=== PATIENT | male | born 1975 | race Caucasian/White ===

== ENCOUNTER 2017-11-09 22:11 | Emergency (ER) | payer OTHER ==
[~2017-11-09] VITALS: Ht 170.2 cm; Wt 85.1 kg
[~2017-11-09 22:11] MED LIST: ALLO100T PO; LISI-725 PO; NAPR-21 PO
[2017-11-09 22:15] VITALS: Ht 170.2 cm; Wt 85.1 kg
[2017-11-09] MEDS ORDERED: OXYCODONE/ACETAMINOPHEN 5-325 TAB PO STA (22:35)
[2017-11-09] MEDS ORDERED: IBUPROFEN 600 MG TAB PO STA (22:35)
[2017-11-09 23:02] LABS: EOS % 0.7 %; EOS ABS # 0.05 K/uL (0-0.5); HEMATOCRIT 44.1 % (42-52); HEMOGLOBIN 14.9 g/dL (14.0-18.0); IG# 0.01 K/uL (0.00-0.02); LYMPH % 14.7 %; LYMPH ABS # 1.03 K/uL (1.2-3.4); MEAN CELL VOLUME 87.8 fL (80-100); MEAN CORPUSCULAR HEMOGLOBIN 29.7 pg (25-34); MEAN CORPUSCULAR HGB CONC 33.8 g/dl (32-36); MEAN PLATELET VOLUME 9.7 fL (7.4-10.4); MONO % 11.7 %; MONO ABS # 0.82 K/uL (0.11-0.59); NEUT % 72.8 %; NEUT ABS # 5.09 K/uL (1.4-6.5); PLATELET COUNT 273 K/uL (130-400); RED CELL DISTRIBUTION WIDTH CV 13.1 % (11.5-14.5); RED CELL DISTRIBUTION WIDTH SD 41.6 fL (36.4-46.3)
[2017-11-09] MEDS ORDERED: ASPI325T39 PO (23:07)
[2017-11-09] MEDS ORDERED: FLNIN/ NAE (23:07)
[2017-11-09] MEDS ORDERED: LSN40 PO (23:07)
[2017-11-09] MEDS ORDERED: PANT40TA2 PO (23:07)
[2017-11-09 23:23] LABS: POTASSIUM 3.8 mmol/L (3.5-5.1); URIC ACID 5.8 mg/dl (2.6-7.2)
[2017-11-09] MEDS ORDERED: CEFTRIAXONE SOD INJ 1 GM ADDVIAL IV STA (23:41)
[2017-11-09] MEDS ORDERED: SULFAMETHOXAZOLE/TRIMETHOPRIM DS 800/160MG TAB PO ONE (23:45)
[2017-11-09] MEDS ORDERED: PERCOCET HOME PACK PO ONE (23:45)
[2017-11-10] MEDS ORDERED: SULF800T23 PO
[2017-11-10] MEDS ORDERED: CEPH500C PO
[2017-11-10] MEDS ORDERED: CLC6 PO
[2017-11-10] MEDS ORDERED: OXYC-57 PO
[2017-11-10] MEDS ORDERED: CEPHALEXIN MONOHYDRATE 250 MG CAP PO ONE
--- NOTE | 2017-11-10 00:01 | EMERGENCY ROOM VISIT NOTE ---
History First contact with patient: 22:21 Chief Complaint: FOOT PAIN Stated Complaint: R FOOT HURTS BAD History of Present Illness The patient is a 42 year old male who presents to the Emergency Room with complaints of severe pain in the right foot that has been intermittent over the last several weeks. Patient also complains of redness and swelling. He has a history of gout. He has been taking his allopurinol as prescribed. He denies any fever or chills. No known injury. The patient has tried soaking it in Epsom salts with minimal relief. He is not taking any pain medication. Review of Systems 10 system review performed and negative unless noted in HPI or below Past Medical/Surgical History Gout Hernia surgery Social History Smoking Status: Never Smoker Alcohol Use: none Housing Status: lives with family Current/Historical Medications Scheduled Aspirin (Aspirin Ec), 325 MG PO PRN Cephalexin Monohydrate (Keflex), 500 MG PO QID Colchicine (Colcrys), 1 TAB PO BID Fluticasone Propionate (Fluticasone Propionate), 2 SPRAYS WALKER DAILY Lisinopril (Lisinopril), 40 MG PO DAILY Pantoprazole (Pantoprazole Sodium), 40 MG PO DAILY Sulfa/Trimethoprim (Bactrim Ds 800MG/160MG), 1 TAB PO BID Scheduled PRN Allopurinol (Zyloprim), 100 MG PO QAM PRN for GOUT PAIN Oxycodone/Acetaminophen 5MG/325MG (Percocet 5MG/325MG), 1-2 TABS PO Q4 PRN for Pain Physical Exam Vital Signs Date Time Temp Pulse Resp B/P (MAP) Pulse Ox O2 Delivery O2 Flow Rate FiO2 11/10/17 00:09 37.5 95 18 138/100 96 11/10/17 00:00 37.5 95 18 138/100 96 Room Air 11/09/17 22:15 37.7 110 20 95 Room Air Physical Exam VITALS: Vitals are noted on the nurse's note and reviewed by myself. Vital signs stable. GENERAL: 42-year-old male, in moderate discomfort,, in no acute distress, nondiaphoretic, well-developed well-nourished. SKIN: A few superficial cracks noted in the webspaces of the toes on the right foot HEAD: Normocephalic atraumatic. EYES: Conjunctivae without injection, sclerae without icterus. Extraocular movements intact. NECK: Supple without nuchal rigidity. No JVD. MUSCULOSKELETAL: RLE: Diffuse edema and erythema over the right foot. Significant tenderness to palpation over the first and second MTP joint. A few superficial cracks noted in the webspaces as noted above. No significant tenderness over the ankle. Pain with dorsiflexion and plantarflexion. NEURO: Patient was alert and oriented to person place and time. Normal sensation to touch. No focal neurological deficits. Medical Decision & Procedures ER Provider Diagnostic Interpretation: X-rays of the right foot were performed and reviewed by myself No acute fracture or signs of osteomyelitis noted Laboratory Results 11/09/17 22:45 Red Blood Count 5.02, Mean Corpuscular Volume 87.8, Mean Corpuscular Hemoglobin 29.7, Mean Corpuscular Hemoglobin Concent 33.8, Mean Platelet Volume 9.7, Neutrophils (%) (Auto) 72.8, Lymphocytes (%) (Auto) 14.7, Monocytes (%) (Auto) 11.7, Eosinophils (%) (Auto) 0.7, Basophils (%) (Auto) 0.0, Neutrophils # (Auto ) 5.09, Lymphocytes # (Auto) 1.03, Monocytes # (Auto) 0.82, Eosinophils # (Auto ) 0.05, Basophils # (Auto) 0.00 11/09/17 22:45 Test 11/09/17 22:45 White Blood Count 7.00 K/uL (4.8-10.8) Red Blood Count 5.02 M/uL (4.7-6.1) Hemoglobin 14.9 g/dL (14.0-18.0) Hematocrit 44.1 % (42-52) Mean Corpuscular Volume 87.8 fL (80-100) Mean Corpuscular Hemoglobin 29.7 pg (25-34) Mean Corpuscular Hemoglobin Concent 33.8 g/dl (32-36) Platelet Count 273 K/uL (130-400) Mean Platelet Volume 9.7 fL (7.4-10.4) Neutrophils (%) (Auto) 72.8 % Lymphocytes (%) (Auto) 14.7 % Monocytes (%) (Auto) 11.7 % Eosinophils (%) (Auto) 0.7 % Basophils (%) (Auto) 0.0 % Neutrophils # (Auto) 5.09 K/uL (1.4-6.5) Lymphocytes # (Auto) 1.03 K/uL (1.2-3.4) Monocytes # (Auto) 0.82 K/uL (0.11-0.59) Eosinophils # (Auto) 0.05 K/uL (0-0.5) Basophils # (Auto) 0.00 K/uL (0-0.2) RDW Standard Deviation 41.6 fL (36.4-46.3) RDW Coefficient of Variation 13.1 % (11.5-14.5) Immature Granulocyte % (Auto) 0.1 % Immature Granulocyte # (Auto) 0.01 K/uL (0.00-0.02) Anion Gap 7.0 mmol/L (3-11) Est Creatinine Clear Calc Drug Dose 101.4 ml/min Estimated GFR () 107.9 Estimated GFR (Non- 93.1 BUN/Creatinine Ratio 12.1 (10-20) Uric Acid 5.8 mg/dl (2.6-7.2) Calcium Level 9.0 mg/dl (8.5-10.1) Medications Administered Medications (Trade) Dose Ordered Sig/Hortensia Route Start Time Stop Time Status Last Admin Dose Admin Oxycodone/ Acetaminophen (Percocet 5-325mg Tab) 1 tab NOW STAT PO 11/09/17 22:35 11/09/17 22:37 DC 11/09/17 22:56 1 TAB Ibuprofen (Motrin Tab) 600 mg ONE STAT PO 11/09/17 22:35 11/09/17 22:37 DC 11/09/17 22:55 600 MG Trimethoprim/ Sulfamethoxazole (Septra Ds 800/ 160MG Tab) 1 tab NOW ONCE PO 11/09/17 23:45 11/09/17 23:46 DC 11/10/17 00:01 1 TAB Oxycodone/ Acetaminophen (Percocet 5/ 325MG Home Pack) 1 homepack UD ONCE PO 11/09/17 23:45 11/09/17 23:46 DC 11/10/17 00:01 1 HOMEPACK Cephalexin Monohydrate (Keflex Cap) 500 mg NOW ONCE PO 11/10/17 00:00 11/10/17 00:01 DC 11/10/17 00:01 500 MG ED Course Patient was seen and examined Vital signs including blood pressure were reviewed medications list was verified with patient I had a long conversation with the patient regarding my recommendations of a workup. At first, the patient declined blood work or imaging. I discussed the risks of this. He finally agreed to the workup. Labs were obtained, and a saline lock was established He was given Percocet for pain Imaging was performed and reviewed Upon reevaluation, the patient was more comfortable. We discussed the results of his workup. He voiced understanding. He was given 1 dose of Keflex and Bactrim. The patient was also given a home pack of Percocet. He very much wanted to be discharged home. I urged the encourage of follow-up. I reviewed discharge instructions the patient. They voiced understanding and had no further questions. Medical Decision Differential diagnosis: Gout, cellulitis, osteomyelitis, DVT, PAD, PVD This patient is a 42-year-old male presents to the emergency department with intermittent right foot swelling, redness and pain. On exam, the foot was significantly erythematous and swollen. He was also particularly to tender to touch over the first and second MTP joint. With his history of gout, this is a possibility. I am however concerned about infection. The patient does not seem to be very compliant as he has missed several appointments with his primary care physician. He was also borderline febrile and tachycardic. The patient initially adamantly refused a workup. Fortunately, the RN was able to persuade the patient. There is no leukocytosis, which is encouraging. The patient had good pain relief in the emergency department. For infection, the patient will be covered with Keflex and Bactrim. For gout, the patient was given a prescription of narcotics in addition to colchicine. He will continue his allopurinol. I urged the importance of close follow-up with his primary care physician for recheck. He voiced understanding. He also agrees to return to the emergency department with any new or worsening symptoms Medication Reconcilliation Current Medication List: was personally reviewed by me Blood Pressure Screening Patient's blood pressure: Elevated blood pressure Blood pressure disposition: Elevated BP felt to be situational, Did not require urgent referral Impression Primary Impression: Cellulitis Additional Impression: Gout Departure Information Dispostion Home / Self-Care Condition GOOD Prescriptions Colchicine (Colcrys) 0.6 Mg Tab 1 TAB PO BID for 7 Days, #14 TAB Prov: Urban, Devi P., PA-C 11/10/17 Oxycodone/Acetaminophen 5MG/325MG (PERCOCET 5MG/325MG) Tab 1-2 TABS PO Q4 Y for Pain, #15 TAB For Initial Treatment Prov: Devi Montenegro PA-C 11/10/17 Sulfa/Trimethoprim (Bactrim Ds 800MG/160MG) Tab 1 TAB PO BID for 7 Days, #14 TAB Prov: Devi [place]or PA-C 11/10/17 Cephalexin Monohydrate (Keflex) 500 Mg Cap 500 MG PO QID for 7 Days, #28 CAP Prov: Devi Montenegro PA-C 11/10/17 Referrals Jazmine Heard M.D. (PCP) Patient Instructions My [facility] Additional Instructions You have been evaluated in the emergency department for pain in your foot. This is likely gout on top of an infection. Please finish the entire course of Keflex and Bactrim Please take colchicine 1 tab twice daily for 7 days Ibuprofen 600 mg every 6 hours Percocet 1-2 tabs every 4 hours for severe pain. Do not drink alcohol or drive while taking this medication. This may be taken with ibuprofen, but avoid Tylenol. It is VERY important to follow-up with your primary care physician within the next 2-3 days to have a recheck of the foot Please return to the emergency department with any new, worsening or concerning symptoms; especially, worsening pain, redness, swelling or fever It was a pleasure participating in your care today Problem Qualifiers
[2017-11-10 00:09] VITALS: BP 138/100; PULSE 95; TEMP 37.5; O2SAT 96
--- NOTE | 2017-11-10 07:01 | DIAGNOSTIC IMAGING REPORT ---
R FOOT MIN 3 VIEWS ROUTINE CLINICAL HISTORY: Pain, redness, swelling diffusely over the right foot COMPARISON: Right first toe radiographs September 29, 2014. FINDINGS: No fracture or suspicious osseous lesion is present. There is no radiographic evidence of osteomyelitis. Diffuse soft tissue swelling of the right foot is noted. There is moderate arthritis of the interphalangeal joint of the right first toe and mild osteophytosis of the right first metatarsophalangeal joint. There is chronic deformity of the right second metatarsal head. Right first toe soft tissue swelling is noted. IMPRESSION: 1. No acute fracture or dislocation within the right foot. 2. 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 3. Right foot soft tissue swelling. Electronically signed by: Prabhakar Ramirez M.D. 11/10/2017 6:59 AM Dictated Date/Time: 11/10/2017 6:55 AM
== END 2017-11-10 00:10 | disposition home or self-care (01) ==
LOC: C.EDB 22:13 → C.EDC 11-10 00:10
DX: L03.115 Cellulitis of right lower limb (principal); M10.9 Gout, unspecified; Z79.899 Other long term (current) drug therapy